=== PATIENT | male | born 1970 | race American Indian/Alaskan Native ===

== ENCOUNTER 2018-06-29 09:04 | Outpatient (CLI) | payer BC ==
--- NOTE | 2018-06-29 12:45 | Ultrasound Report ---
RIGHT UPPER QUADRANT ABDOMINAL ULTRASOUND: 06/29/18 09:04:00 CLINICAL: Right upper quadrant abdominal pain. FINDINGS: High-resolution ultrasound demonstrated a normal liver with normal contour, size and overall echogenicity. Normal hepatic vasculature and inferior vena cava. Normally distended gallbladder with no stones. The gall bladder wall measures 2.0 mm in thickness. Normal intrahepatic and extra hepatic bile ducts. The common bile duct measures 3.0 mm diameter. The pancreas is well imaged and normal. Normal upper abdominal aorta. The right kidney is normal and measures 9.5 x 4.2 x 4.3 cm No ascites or mass. IMPRESSION: Normal study. No cholelithiasis.
== END 2018-06-29 09:05 | disposition home or self-care (01) ==
LOC: SPVWC 09:04
PROVIDERS: ATTEND Family Medicine Adult Medicine
DX: R10.11 Right upper quadrant pain (principal)
CPT/HCPCS: 76705